=== PATIENT | female | born 1945 ===

== ENCOUNTER 2017-12-01 12:29 | Emergency (ER) | payer MEDICARE, OTHER ==
[2017-12-01 12:54] VITALS: RESP 18; O2SAT 97
--- NOTE | 2017-12-01 14:14 | C.PDOC ---
History Of Present Illness 72 year old female presents to the ED c/o left shoulder, elbow, hip pain that started on November 21. Patient describes her pain as throbbing, she went to see her PMD twice in the past she was prescribed muscle relaxants that she took with no improvement. Patient states she was moving some furniture around when the pain started. Patient denies fever, chills, nausea, vomit, weakness, numbness, redness to the extremities. Time Seen by Provider: 12/01/17 13:32 Chief Complaint (Nursing): Upper Extremity Problem/Injury History Per: Patient History/Exam Limitations: no limitations Onset/Duration Of Symptoms: Days Current Symptoms Are (Timing): Still Present Quality: "Pain" Recent travel outside of the [place]: No Additional History Per: Patient Past Medical History Reviewed: Historical Data, Nursing Documentation, Vital Signs Vital Signs: Last Vital Signs Temp 98.5 F 12/01/17 12:51 Pulse 86 12/01/17 12:51 Resp 18 12/01/17 12:51 BP 133/80 12/01/17 12:51 Pulse Ox 97 12/01/17 15:48 - Medical History PMH: No Chronic Diseases Surgical History: No Surg Hx Family History: States: Unknown Family Hx - Social History Hx Alcohol Use: No Hx Substance Use: No Review Of Systems Constitutional: Negative for: Fever, Chills Cardiovascular: Negative for: Chest Pain, Palpitations Respiratory: Negative for: Cough Gastrointestinal: Negative for: Nausea, Vomiting, Abdominal Pain Musculoskeletal: Positive for: Shoulder Pain, Arm Pain, Back Pain Skin: Negative for: Rash Neurological: Negative for: Weakness, Numbness Physical Exam - Physical Exam Appears: Non-toxic, No Acute Distress Skin: Normal Color, Warm, Dry Head: Atraumatic, Normacephalic Eye(s): bilateral: Normal Inspection Nose: No Discharge, No Deformity Oral Mucosa: Moist Neck: Normal ROM, Supple Back: Other (left paralumbar area tenderness) Extremity: Normal ROM, Tenderness (left parasternal posterior shoulder, left elbow), Capillary Refill (< 2 seconds), No Deformity, No Swelling Pulses: Left Radial: Normal, Right Radial: Normal Neurological/Psych: Oriented x3, Normal Speech, Normal Cognition, Normal Motor, Normal Sensation Gait: Steady ED Course And Treatment O2 Sat by Pulse Oximetry: 97 (On RA) Pulse Ox Interpretation: Normal - Other Rad LS Spine X-Ray X-Ray: Viewed By Me, Read By Radiologist Interpretation: Lumbar spine three views. History: Low back pain. Comparison: None available. Findings: Mild retrolisthesis of L2 on L3 as well as L3 on L4. Mild inferior endplate concavities at the L4 and L5 vertebral body levels. Multilevel anterior osteophytosis throughout the lumbar spine. Lower level facet hypertrophy and sclerosis in the lower lumbar spine. Degenerative changes in the mid thoracic spine. Calcification within the aorta. retention in the colon. Impression: Prominent degenerative changes. If pain persists, consider MRI. Cervical Spine X-Ray X-Ray: Viewed By Me, Read By Radiologist Interpretation: Cervical spine three views. History: Injury. Comparison: None available. Findings: Cervical spine visualized from C1 through C7. Minimal anterolisthesis of C6 on C7. Disc space narrowing at the C6-7 level with mild anterior osteophytosis at that level. No significant prevertebral soft tissue swelling. No evidence for acute displaced fracture or dislocation. Suboptimal view of the dens. Repeat study and or correlation with C spine CT may be helpful if clinically indicated. Prominent facet hypertrophy at the level of the uncovertebral joints. Impression: Degenerative changes. If pain persists, consider MRI. Suboptimal/limited view of the dens. If there is concern for injury, correlation with repeat study and or CT C-spine may helpful if clinically indicated. Shoulder X-Ray X-Ray: Interpreted by Me, Viewed By Me Interpretation: negative, no fracture or dislocations Left elbow X-Ray X-Ray: Interpreted by Me, Viewed By Me Interpretation: negative, no fracture or dislocations Medical Decision Making Medical Decision Making: Impression : arthralgia, cervical radiculopathy, low back pain Plan: * Cervical Spine X-Ray * LS Spine X-Ray * Left shoulder X-Ray * Left elbow X-Ray * Motrin 600 mg PO * Ultram 50 mg PO Patient will be d/c home with naproxen and tramadol and with instructions to follow up with PMD in 1-2 days. Disposition Counseled Patient/Family Regarding: Studies Performed, Diagnosis, Need For Followup, Rx Given - Disposition Referrals: Heron Roth MD [Staff Provider] - Disposition: HOME/ ROUTINE Disposition Time: 15:47 Condition: STABLE Additional Instructions: follow up with doctor in 2 days call to make an appointment continue medications at home return to ER if symptoms worsens or progress Prescriptions: Naproxen [Naprosyn] 500 mg PO BID PRN #16 tab PRN Reason: Pain, Moderate (4-7) traMADol [Ultram] 50 mg PO TID PRN #12 tab PRN Reason: Pain, Moderate (4-7) Instructions: Musculoskeletal Pain (ED), Arthralgia (ED) Forms: Gen Discharge Inst Iraqi, [employer] (Iraqi) Print Language: FAROESE - Clinical Impression Clinical Impression: Arthralgia, Musculoskeletal pain - Scribe Statement The provider has reviewed the documentation as recorded by the Scribe Lb Tidwell All medical record entries made by the Scribe were at my direction and personally dictated by me. I have reviewed the chart and agree that the record accurately reflects my personal performance of the history, physical exam, medical decision making, and the department course for this patient. I have also personally directed, reviewed, and agree with the discharge instructions and disposition.
--- NOTE | 2017-12-01 15:39 | RAD ---
Lumbar spine three views History: Low back pain. Comparison: None available. Findings: Mild retrolisthesis of L2 on L3 as well as L3 on L4. Mild inferior endplate concavities at the L4 and L5 vertebral body levels. Multilevel anterior osteophytosis throughout the lumbar spine. Lower level facet hypertrophy and sclerosis in the lower lumbar spine. Degenerative changes in the mid thoracic spine. Calcification within the aorta. retention in the colon. Impression: Prominent degenerative changes. If pain persists, consider MRI.
--- NOTE | 2017-12-01 15:41 | RAD ---
Cervical spine three views History: Injury. Comparison: None available. Findings: Cervical spine visualized from C1 through C7. Minimal anterolisthesis of C6 on C7. Disc space narrowing at the C6-7 level with mild anterior osteophytosis at that level. No significant prevertebral soft tissue swelling. No evidence for acute displaced fracture or dislocation. Suboptimal view of the dens. Repeat study and or correlation with C spine CT may be helpful if clinically indicated. Prominent facet hypertrophy at the level of the uncovertebral joints. Impression: Degenerative changes. If pain persists, consider MRI. Suboptimal/limited view of the dens. If there is concern for injury, correlation with repeat study and or CT C-spine may helpful if clinically indicated.
[2017-12-01 16:02] VITALS: BP 132/74; PULSE 77; TEMP 97.8
--- NOTE | 2017-12-01 16:32 | RAD ---
Left shoulder three views History: Shoulder pain. Comparison: None available. Findings: Glenohumeral joint space appears preserved. Mild degenerative changes of the acromioclavicular joint space with minimal superior subluxation of the distal clavicle in relationship to the acromion. Clinical correlation. Impression: Mild degenerative changes of the acromioclavicular joint space with minimal superior subluxation of the distal clavicle in relationship to the acromion. Clinical correlation. If pain persists, consider MRI.
--- NOTE | 2017-12-01 16:43 | RAD ---
Left elbow three views History: Elbow pain. Comparison: None available. Findings: No evidence for acute displaced fracture or dislocation. No significant elbow joint effusion. Impression: Negative acute. If pain persists, consider MRI.
== END 2017-12-01 16:02 | disposition home or self-care (01) ==
LOC: C.ER 12:29
DX: M79.1 Myalgia (principal); M25.50 Pain in unspecified joint

== ENCOUNTER 2018-10-14 21:33 | Emergency (ER) | payer MEDICARE, OTHER ==
--- NOTE | 2018-10-14 22:17 | C.PDOC ---
History Of Present Illness Patient presents to the ER after she tripped and fell [employer], hit her nose and began bleeding from the left nare. Patient remembers the event. Denies LOC, nausea, or vomiting. Time Seen by Provider: 10/14/18 22:17 Chief Complaint (Nursing): ENT Problem History Per: Patient History/Exam Limitations: None Onset/Duration Of Symptoms: Mins Current Symptoms Are (Timing): Still Present Severity: Moderate Pain Scale Rating Of: 4 Past Medical History Reviewed: Historical Data, Nursing Documentation, Vital Signs Vital Signs: Last Vital Signs Temp 97.7 F 10/14/18 21:44 Pulse 67 10/14/18 21:44 Resp 20 10/14/18 21:44 BP 186/89 H 10/14/18 21:44 Pulse Ox 97 10/14/18 21:44 - Medical History PMH: HTN Family History: States: No Known Family Hx - Social History Hx Alcohol Use: No Hx Substance Use: No - Immunization History Hx Tetanus Toxoid Vaccination: No Hx Influenza Vaccination: Yes (09/2018) Hx Pneumococcal Vaccination: Yes Review Of Systems Constitutional: Negative for: Fever, Chills ENT: Positive for: Other (Epistaxis) Cardiovascular: Negative for: Chest Pain, Palpitations Respiratory: Negative for: Cough, Shortness of Breath Gastrointestinal: Negative for: Nausea, Vomiting Neurological: Negative for: Weakness, Numbness, Other (LOC) Physical Exam - Physical Exam Appears: Non-toxic Skin: Warm, Dry Head: Normacephalic Eye(s): bilateral: Normal Inspection, PERRL, EOMI Nose: No Septal Hematoma, Other (Small clots in left nare) Oral Mucosa: Moist Neck: Trachea Midline, No Midline Cervical Tenderness, No Paracervical Tenderness, Supple Chest: Symmetrical, No Tenderness Cardiovascular: Rhythm Regular Respiratory: No Rales, No Rhonchi, No Wheezing Gastrointestinal/Abdominal: Soft, No Tenderness Neurological/Psych: Oriented x3 ED Course And Treatment O2 Sat by Pulse Oximetry: 97 (Room air) Pulse Ox Interpretation: Normal Progress Note: CT orbits/facials ordered. no active bleeding. Reevaluation Time: 01:36 Reassessment Condition: Improved Disposition Counseled Patient/Family Regarding: Studies Performed, Diagnosis, Need For Followup - Disposition Referrals: Romeo Zhou MD [Staff Provider] - Disposition: HOME/ ROUTINE Disposition Time: 22:17 Condition: FAIR Additional Instructions: please return if symptoms recur Instructions: Nosebleeds (DC), Contusion (DC) Forms: [employer] (Icelandic) - Clinical Impression Clinical Impression: Fall, Nasal contusion, Epistaxis - Scribe Statement The provider has reviewed the documentation as recorded by the Scribe Edgar Gillis All medical record entries made by the Scribe were at my direction and personally dictated by me. I have reviewed the chart and agree that the record accurately reflects my personal performance of the history, physical exam, medical decision making, and the department course for this patient. I have also personally directed, reviewed, and agree with the discharge instructions and disposition.
[2018-10-15 01:44] VITALS: BP 138/83; PULSE 73; RESP 20; TEMP 98.3; O2SAT 100
--- NOTE | 2018-10-15 10:19 | CT ---
Date of service: 10/14/2018 PROCEDURE: CT ORBITS - MAXILLOFACIAL SKELETON WITHOUT CONTRAST. HISTORY: Status post fall; attention nose. COMPARISON: None available. TECHNIQUE: Axial CT images of the orbits were obtained. Coronal and sagittal reformats were generated. Radiation dose: Total exam DLP = 846.44 mGy-cm. This CT exam was performed using one or more of the following dose reduction techniques: Automated exposure control, adjustment of the mA and/or kV according to patient size, and/or use of iterative reconstruction technique. FINDINGS: The current study reveals comminuted left-sided nasal bone fractures with a small fracture of the anterior tip of the right nasal bone. In addition, there is fracture of the anterior margin of the bony nasal septum with mild rightward deviation of the distal septal fragment.. The anterior nasal cavity is subtotally opacified with what probably represents a combination of mucosal edema and possibly hemorrhage. There is overlying soft tissue swelling extends laterally over the over the base of the the nasal bones and frontal processes of the maxilla left greater than right ENT consultation is recommended for further evaluation.. The remaining maxillofacial skeletal structures otherwise appear intact.. The orbits and contents unremarkable. The bony orbits are intact. Globes intact and lenses appropriately located. There are no retrobulbar hemorrhages or collections.. Optic nerves and extraocular musculature unremarkable.. The bony paranasal sinuses are intact and appear relatively well-aerated with the exception of the left aspect of the frontal sinus which appears slightly underpneumatized-hypoplastic.. No fluid levels seen to suggest acute hemorrhage. No significant mucoperiosteal inflammatory changes.. The mandible appears intact. OTHER: Minor vascular calcifications both carotid siphons. Mild calcified atherosclerotic plaque both carotid bifurcations. Consider follow-up carotid Doppler exam. IMPRESSION: Comminuted left-sided nasal bone fractures with what appears represent small fracture distal tip right nasal bones. There is overlying soft tissue swelling. Presumed mucosal edema and hemorrhage involving the anterior nasal mucosa. ENT consultation recommended. Note that these findings are discordant with preliminary report. This final report was placed in PA review folder for follow up.
== END 2018-10-15 01:44 | disposition home or self-care (01) ==
LOC: C.ER 21:33
DX: S00.33XA Contusion of nose, initial encounter (principal); W01.0XXA Fall on same level from slipping, tripping and stumbling without subsequent striking against object, initial encounter; R04.0 Epistaxis

== ENCOUNTER 2018-11-12 09:23 | Outpatient (CLI) | payer MEDICARE | END 2018-11-12 09:24 | disposition home or self-care (01) | LOC: C.RT 09:24 | DX: J45.909 Unspecified asthma, uncomplicated (principal); R05 Cough; I65.23 Occlusion and stenosis of bilateral carotid arteries ==